=== PATIENT | female | born 1980 | race Caucasian/White ===

== ENCOUNTER → 2017-09-17 13:35 | Observation (INO) ==
[2017-09-17 11:03] LABS: Basophils % 0.3 %; Eosinophils # 0.2 K/mcL (0.0-0.6); Eosinophils % 1.8 %; Hematocrit 32.8 % (35.3-44.9); Hemoglobin 10.5 g/dL (11.5-15.4); Immature Granulocytes % 0.5 % (0-4); Lymphocytes # 2.2 K/mcL (0.6-4.6); Lymphocytes % 20.3 %; Mean Corpuscular Hemoglobin 26.2 pg (28.0-33.3); Mean Corpuscular Volume 81.8 fL (83.0-100.0); Mean Platelet Volume 8.6 fL (9.4-12.4); Monocytes # 0.7 K/mcL (0.0-1.3); Monocytes % 6.1 %; Neutrophils # 7.8 K/mcL (1.6-8.9); Nucleated Red Blood Cells 0.2 /100 WBC (0); Platelet Count 411 K/mcL (140-400); Red Blood Count 4.01 M/mcL (3.82-4.97)
[2017-09-17 11:08] LABS: Amphetamine Screen,Urine Negative ng/mL (Cutoff=1000); Barbiturate Screen,Urine Negative ng/mL (Cutoff=200); Benzodiazepines Screen,Urine Negative ng/mL (Cutoff=200); Cannabinoid Screen,Urine Negative ng/mL (Cutoff = 50); Cocaine Screen,Urine Negative ng/mL (Cutoff= 300); Opiate Screen,Urine Negative ng/mL (Cutoff=300); Phencyclidine Screen,Urine Negative ng/mL (Cutoff=25)
[2017-09-17 11:11] LABS: Creatinine,Urine 90 mg/dL
[2017-09-17 11:30] LABS: Alanine Aminotransferase 27 Units/L (7-52); Aspartate Amino Transferase 38 Units/L (13-39); BUN/Creatinine Ratio 20 (6-26); Blood Urea Nitrogen 8 mg/dL (6-20); Lactate Dehydrogenase 160 Units/L (140-271); Uric Acid 4.1 mg/dL (2.3-7.6); eGFR For African Americans > 60 (> 60); eGFR For Non-African Americans > 60 (> 60)
[2017-09-17 11:47] LABS: Bilirubin,Urine Negative (Negative); Blood,Urine Negative (Negative); Clarity,Urine Cloudy (Clear); Color,Urine Yellow (Yellow); Glucose,Urine (UA) Normal (Normal); Ketones,Urine Trace mg/dL (Negative); Leukocyte Esterase,Urine Moderate (Negative); Nitrite,Urine Negative (Negative); PH,Urine 6.5 pH Units (5.0-8.0); Protein,Urine Negative (Neg-Trace); Specific Gravity,Urine 1.019 (1.010-1.025); Urobilinogen,Urine Normal (Normal)
[2017-09-17 11:49] LABS: Bacteria,Urine Moderate per hpf (None-Few); Hyaline Casts,Urine Few per lpf (None-Few); RBC,Urine 0-3 per hpf (0-3); Squamous Epithelial Cell,Urine Many per lpf (None-Few); WBC,Urine 30-50 per hpf (0-3)
--- NOTE | 2017-09-17 13:13 | OB/GYN Progress Note ---
Date of Encounter: 09/17/17 Time of Encounter: 13:10 - Assessment and Plan (1) and not yet delivered in third trimester Current Visit: Yes Status: Acute (2) 29 weeks gestation of Current Visit: Yes Status: Acute (3) Gestational hypertension Current Visit: Yes Status: Acute We will start patient on labetalol 200 mg twice a day will do 24 hr urine she will follow up in 1 week for blood pressure check following maternal medicine and then the week for her diabetes Qualifiers: Trimester: third trimester Qualified Code(s): O13.3 - Gestational [ -induced] hypertension without significant proteinuria, third trimester (4) Gestational diabetes Current Visit: Yes Status: Acute Qualifiers: Gestational diabetes mellitus control: oral hypoglycemic-controlled Trimester: third trimester Qualified Code(s): O24.415 - Gestational diabetes mellitus in , controlled by oral hypoglycemic drugs Subjective - Subjective Interval history: Patient is a 46-year-old 2 para 1 at 29-3/7 weeks who was sent over from the office due to elevated blood pressures. Patient's had no issues up to this point which is recently diagnosed as a gestational diabetic and recently started on metformin patient had nausea vomiting diarrhea for the past week and feels she is dehydrated her urinalysis did show she had protein she did have ketones and she was dehydrated based on specific gravity we did repeat her blood pressures remained elevated so we sent her to labor and delivery for evaluation on labor and delivery patient did have elevated blood pressures 130s over high 90s to as high as 160/101 PIH labs obtained and the patient they come back normal for protein creatinine ratio was 0.3 we did give the patient one dose labetalol 200 mg by mouth did bring her blood pressure back in the normal range I feel comfortable letting the patient go home at this time on labetalol 200 mg twice a day she is scheduled to see maternal medicine at the end of the week and we will start her on a 24-hour urine to check this since she is a diabetic so have a baseline patient will do blood pressure before taking medication if elevated she will take it of its normal she will hold off taking medication she was brian on admission we did give her an IV bolus was did space out the contractions. Patient was not feeling any of the contractions. Patient will get back on her diet likely just for the nausea and vomiting and she has been recommended to get some Imodium to help with the diarrhea. Antepartum ROS: other (Hypertension) Objective - Vital Signs Vital Signs: Intake and Output 09/16/17 09/17/17 09/17/17 23:59 07:59 15:59 Other: Weight 96.2 kg Patient Weight 09/17/17 23:59 Weight 96.2 kg - Exam FHR: category 1 FHR comments: heart tones 140s reactive occasional contractions seen Abdomen: Present: normal appearance Uterus: Present: normal, firm - Labs Labs: Abnormal lab results Hgb 10.5 g/dL (11.5-15.4) L 09/17/17 10:40 Hct 32.8 % (35.3-44.9) L 09/17/17 10:40 MCV 81.8 fL (83.0-100.0) L 09/17/17 10:40 MCH 26.2 pg (28.0-33.3) L 09/17/17 10:40 Plt Count 411 K/mcL (140-400) H 09/17/17 10:40 MPV 8.6 fL (9.4-12.4) L 09/17/17 10:40 Nucleated RBCs/100 WBC 0.2 /100 WBC (0) H 09/17/17 10:40 Creatinine 0.40 mg/dL (0.60-1.20) L 09/17/17 10:40 Urine Clarity Cloudy (Clear) A 09/17/17 10:40 Urine Ketones Trace mg/dL (Negative) H 09/17/17 10:40 Ur Leukocyte Esterase Moderate (Negative) H 09/17/17 10:40 Urine Microscopic WBC 30-50 per hpf (0-3) H 09/17/17 10:40 Ur Squamous Epith Cells Many per lpf (None-Few) H 09/17/17 10:40 Urine Bacteria Moderate per hpf (None-Few) H 09/17/17 10:40 Protein/Creatinin Ratio 0.30 mg/mg (0.00-0.20) H 09/17/17 10:40 Urine Total Protein 27 mg/dL (1-14) H 09/17/17 10:40
[~2017-09-17 13:35] MED LIST: 0.9 % Sodium Chloride 1,000 ML IVC ONE; 0.9 % Sodium Chloride 1,000 ML ONE
== END | disposition home or self-care (01) ==
LOC: 1NENULAB
PROVIDERS: ADMIT Obstetrics & Gynecology; ATTEND Obstetrics & Gynecology

== ENCOUNTER → 2017-11-01 18:42 | Observation (INO) ==
[2017-11-01 16:57] LABS: Bilirubin,Urine Negative (Negative); Blood,Urine Negative (Negative); Clarity,Urine Cloudy (Clear); Color,Urine Yellow (Yellow); Glucose,Urine (UA) Normal (Normal); Ketones,Urine Negative (Negative); Leukocyte Esterase,Urine Moderate (Negative); Nitrite,Urine Negative (Negative); Protein,Urine 30 mg/dL (Neg-Trace); Specific Gravity,Urine 1.019 (1.010-1.025); Urobilinogen,Urine Normal (Normal)
[2017-11-01 16:59] LABS: Bacteria,Urine Moderate per hpf (None-Few); Hyaline Casts,Urine Few per lpf (None-Few); Squamous Epithelial Cell,Urine Many per lpf (None-Few); WBC,Urine 50-100 per hpf (0-3)
[2017-11-01 17:06] LABS: Amphetamine Screen,Urine Negative ng/mL (Cutoff=1000); Barbiturate Screen,Urine Negative ng/mL (Cutoff=200); Benzodiazepines Screen,Urine Negative ng/mL (Cutoff=200); Cannabinoid Screen,Urine Negative ng/mL (Cutoff = 50); Cocaine Screen,Urine Negative ng/mL (Cutoff= 300); Opiate Screen,Urine Negative ng/mL (Cutoff=300); Phencyclidine Screen,Urine Negative ng/mL (Cutoff=25)
--- NOTE | 2017-11-01 18:28 | OB/GYN Progress Note ---
Date of Encounter: 11/01/17 Time of Encounter: 16:25 - Assessment and Plan (1) 36 weeks gestation of Current Visit: Yes Status: Acute (2) Large for gestational age fetus affecting mother, antepartum, third trimester, single gestation Current Visit: Yes Status: Acute (3) Gestational diabetes Current Visit: No Status: Acute Qualifiers: Gestational diabetes mellitus control: insulin-controlled Trimester: third trimester Qualified Code(s): O24.414 - Gestational diabetes mellitus in , insulin controlled (4) and not yet delivered in third trimester Current Visit: No Status: Acute (5) uterine contractions in third trimester, antepartum Current Visit: Yes Status: Acute Subjective - Subjective Interval history: Patient is a 36-year-old 2 para 1 at 36-6/7 weeks who presents to labor and delivery for evaluation for labor. Patient states been brian all day not that uncomfortable but noticeable. She states she been a lot of vaginal pressure and wanted to be evaluated she states on her NST yesterday she was also having contractions but was not addressed with her and they just discharged to home. Patient was seen earlier in the week and was 2 cm and was 3 cm on admission. She was having irregular contractions but she did not appear to be uncomfortable. We did have the patient ambulate for approximately 1 hour the reassessed and she had made no cervical change. Did addiction counselor her on signs of labor and did advise a right now she is not there. Maternal medicine is following the patient she is a A2 diabetic on insulin with a large for gestational age . They are recommending she delivered in the 38 week range. Patient has been getting twice a week NSTs which have all been reassuring and patient's blood pressures have been stable. Patient will be discharged home with labor precautions if things get more comfortable she is to call or just return. She is not uncomfortable she will keep her appointment on Saturday for her visit with NST Antepartum ROS: contractions Objective - Exam FHR: category 1 FHR comments: heart tones 140s reactive occasional contractions seen Abdomen: Present: gravid Uterus: Present: normal, firm Cervical dilation: 3 Cervix effacement: 70 station: -2 - Labs Labs: Abnormal lab results Urine Clarity Cloudy (Clear) A 11/01/17 16:40 Urine Protein 30 mg/dL (Neg-Trace) H 11/01/17 16:40 Ur Leukocyte Esterase Moderate (Negative) H 11/01/17 16:40 Urine Microscopic RBC 5-15 per hpf (0-3) H 11/01/17 16:40 Urine Microscopic WBC 50-100 per hpf (0-3) H 11/01/17 16:40 Ur Squamous Epith Cells Many per lpf (None-Few) H 11/01/17 16:40 Urine Bacteria Moderate per hpf (None-Few) H 11/01/17 16:40 Ur Culture Indicated? NO. (NO) A 11/01/17 16:40
== END | disposition home or self-care (01) ==
LOC: 1NENULAB
PROVIDERS: ADMIT Obstetrics & Gynecology; ATTEND Obstetrics & Gynecology

== ENCOUNTER 2017-11-04 10:45 | Inpatient (IN) ==
[2017-11-04 11:49] LABS: Basophils % 0.4 %; Eosinophils # 0.1 K/mcL (0.0-0.6); Eosinophils % 1.3 %; Hematocrit 31.4 % (35.3-44.9); Hemoglobin 9.6 g/dL (11.5-15.4); Immature Granulocytes % 0.6 % (0-4); Lymphocytes # 2.6 K/mcL (0.6-4.6); Mean Corpuscular HGB Conc 30.6 g/dL (31.6-35.5); Mean Corpuscular Volume 78.5 fL (83.0-100.0); Mean Platelet Volume 9.6 fL (9.4-12.4); Monocytes # 0.6 K/mcL (0.0-1.3); Neutrophils # 7.7 K/mcL (1.6-8.9); Platelet Count 391 K/mcL (140-400); Red Cell Distribution Width 15.7 % (11.5-14.5); Segmented Neutrophils % 69.7 %
[2017-11-04 11:53] LABS: Alanine Aminotransferase 17 Units/L (7-52); Aspartate Amino Transferase 25 Units/L (13-39); BUN/Creatinine Ratio 13 (6-26); Blood Urea Nitrogen 7 mg/dL (6-20); Lactate Dehydrogenase 156 Units/L (140-271); Uric Acid 6.5 mg/dL (2.3-7.6); eGFR For African Americans > 60 (> 60); eGFR For Non-African Americans > 60 (> 60)
[2017-11-04] MEDS ORDERED: Naloxone 0.4 MG/ML INJ IVP PRN (12:34)
[2017-11-04] MEDS ORDERED: *HR* Nalbuphine 10 MG/ML AMPUL IVP PRN (12:34)
[2017-11-04] MEDS ORDERED: Famotidine 20 MG/2 ML VIAL IVP PRN (12:34)
[2017-11-04] MEDS ORDERED: *HR* Labetalol 20 MG/4 ML SYRINGE IVP ONE (12:36)
[2017-11-04] MEDS ORDERED: Ringers Solution, Lactated 1,000 ML IVC SCH (12:45)
--- NOTE | 2017-11-04 13:06 | OB/GYN History & Physical ---
Date of Encounter: 11/04/17 Time of Encounter: 13:02 Assessment and Plan (1) 37 weeks gestation of Current visit: No Status: Acute Patient with symptomatic hypertension, plan for IOL. (2) Gestational hypertension Current visit: No Status: Acute Multiple elevated BP readings since arrival on the unit. Given labetalol 10mg IVP once. Continue to monitor vitals. Plan for IOL- Pitocin ordered. Qualifiers: Trimester: third trimester Qualified Code(s): O13.3 - Gestational [ -induced] hypertension without significant proteinuria, third trimester (3) Gestational diabetes Current visit: No Status: Acute Home regimen of metformin 1000mg BID with 6 units humulin at bedtime. Currently on NS IVF, if BG <60 will add D5% to IVFs. Monitor BG every 1-2 hours. Qualifiers: Gestational diabetes mellitus control: insulin-controlled Trimester: third trimester Qualified Code(s): O24.414 - Gestational diabetes mellitus in , insulin controlled (4) Group B Streptococcus carrier state affecting Current visit: No Status: Acute Vancomycin per protocol for GBS due to PCN allergy. History of Present Illness Chief complaint: induced hypertension HPI: Ms. Zapata is a 36 year old female at 37 weeks and 2 days that presents to L&D for evaluation. Patient called office this morning with complaints of not feeling well, dizziness, headache, and high blood pressure. Patient with gestational diabetes on Metformin 1000mg twice daily and 6 units of humulin at bedtime; notes good control of BG at home. Mulitple BPs elevated in L&D; Marianna (quirk sander) discussed with Dr. Powell, Dr. Lewis, and Dr. Marrero that agree patient should be induced. Patient notes occasional contractions, two yesterday. No bleeding or loss of fluids, she believes she may have lost her mucus plug on Saturday. Patient notes movement. She admits some lower abdominal pain/cramping, which she relates to the contractions. Labs: Blood type B+ GBS positive-Vancomycin ordered Rubella positive Varicella Positive Hepatitis B nonreactive HIV nonreactive Treponema negative Past Med Surg Social Fam HX - Past Medical History Medical history: asthma Psychiatric history: no psych history - Past Surgical History Surgical History: other - Social History Smoking Status: Never smoker Smokeless Tobacco Status: No Alcohol use: none Drug use: none - Family History Mother Family Member Ethnicity: Non- Living Status: Still Living Hx Family Cardiac Disorders: No Hx Family Respiratory Disorders: No Hx Family Cancer: No Hx Family GI Disorders: No Hx Family Endocrine Disorder: Yes (diabetes) Hx Family Neuromuscular Disorders: No Hx Family Neurologic Disorders: No Hx Family HEENT Disorders: No Hx Family Autoimmune Disorders: No Obstetrical History - Pregnancies : 2 Para: 1 Term: 1 : 0 Ab's: 0 Livin Medications and Allergies Albuterol Sulfate [Albuterol Inhaler] 1 puff IH PRN PRN 08/29/17 [History] Doxylamine/Pyridoxine HCl [Diclegis Dr 10-10 mg Tablet] 2 tab PO DAILY 08/29/17 [History] Omeprazole [PriLOSEC] 20 mg PO DAILY 08/29/17 [History] Vit/Iron Fumarate/FA [ Tablet] 1 tab PO DAILY 08/29/17 [History ] Ranitidine HCl [Zantac] 150 mg PO TID 08/29/17 [History] Humulin N Kwikpen 6 units SQ HS 11/04/17 [History] metFORMIN 1,000 mg PO BID 11/04/17 [History] 3 Allergy/AdvReac Type Severity Reaction Status Date / Time Penicillins AdvReac Vomiting Verified 08/29/17 15:08 Review of System OB All systems PM: reviewed and no additional remarkable complaints except as stated Exam - Constitutional Constitutional: well developed, well nourished, no acute distress - HEENT HEENT: Normocephaly, Mucus Membranes Moist - Neck Neck exam: full ROM, normal inspection - Lungs Respiratory exam: CTAB - Cardiovascular Cardiovascular exam: RRR, +S1, +S2 - Abdomen Abdomen: Present: bowel sounds normal, gravid, non tender - Extremities Extremities exam: normal inspection, warm Results Result Diagrams: 11/04/17 10:52 11/04/17 10:52 Abnormal lab results Hgb 9.6 g/dL (11.5-15.4) L 11/04/17 10:52 Hct 31.4 % (35.3-44.9) L 11/04/17 10:52 MCV 78.5 fL (83.0-100.0) L 11/04/17 10:52 MCH 24.0 pg (28.0-33.3) L 11/04/17 10:52 MCHC 30.6 g/dL (31.6-35.5) L 11/04/17 10:52 RDW 15.7 % (11.5-14.5) H 11/04/17 10:52 Creatinine 0.55 mg/dL (0.60-1.20) L 11/04/17 10:52 All other labs normal. - VTE Reasons for not Prescribing Prophylaxis: Treatment not Indicated - Low risk for VTE
[2017-11-04] MEDS ORDERED: Oxytocin 20 units/ LR 1000 mL 20 UNIT/1,000 ML BAG IVC SCH (13:15)
[2017-11-04 13:32] LABS: Glucose 93 mg/dL (70-105)
--- NOTE | 2017-11-04 14:00 | Anesthesia Evaluation PreOp ---
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 Significant HX Other Medical History: Diabetes Type II (gestational diabetes), GERD Anesthesia History: Past Anesthesia (Sinus surgery, experienced bronchospasms during emergence.) : Yes Alcohol Use: none Drug use: none Medications and Allergies Albuterol Sulfate [Albuterol Inhaler] 1 puff IH PRN PRN 08/29/17 [History] Doxylamine/Pyridoxine HCl [Diclegis Dr 10-10 mg Tablet] 2 tab PO DAILY 08/29/17 [History] Omeprazole [PriLOSEC] 20 mg PO DAILY 08/29/17 [History] Vit/Iron Fumarate/FA [ Tablet] 1 tab PO DAILY 08/29/17 [History ] Ranitidine HCl [Zantac] 150 mg PO TID 08/29/17 [History] Humulin N Kwikpen 6 units SQ HS 11/04/17 [History] metFORMIN 1,000 mg PO BID 11/04/17 [History] 3 Allergy/AdvReac Type Severity Reaction Status Date / Time Penicillins AdvReac Vomiting Verified 08/29/17 15:08 - Meds/Allergy Pre-op Review Medications Reviewed: Yes Allergies Reviewed: Yes Beta Blockers on Current Med List: No Anesthesia Results - Labs 11/04/17 10:52 11/04/17 10:52 Anesthesia Exam BP 142/95 P 93 R 16 T 98.3 Height: 5'5" Weight: 97kg NPO (# of Hours): 6 Pain Scale: 2 Pain Scale Used: Numeric (1 - 10) - HEENT Pupil (Motor): Pupils equal Mallampati: II Teeth: Normal Oral Opening: Greater than 3 - [employer] SUPERVISOR LOC: Oriented [employer] SUPERVISOR Motor: Normal RUE, Normal LUE, Normal RLE, Normal LLE, Normal Face [employer] SUPERVISOR Sensory: Normal: RUE, LUE, RLE, LLE, Face - Cardiac Rhythm: Regular Murmur: None JVD: No Carotid Bruit: No - Pulmonary Breath Sounds: bilateral Clear Respiratory Effort: Symmetrical Anesthesia Assess/Plan ASA Score: 2 Modified [place] Scale for Level of Consciousness: Cooperative, oriented, and tranquil Anesthetic Plan: Regional Autologous Blood: No Monitoring Plan: Standard Monitors Recovery Plan: Other
[2017-11-04] MEDS ORDERED: *HR* FentaNYL (PF) 100 MCG/2 ML VIAL EP ONE (18:16)
[2017-11-04] MEDS ORDERED: EPHEDrine 50 MG/ML VIAL IVP PRN (18:16)
[2017-11-04] MEDS ORDERED: Ondansetron 4 MG/2 ML VIAL IVP PRN (18:16)
[2017-11-04] MEDS ORDERED: Bupivacaine-MPF 0.25% 10 ML VIAL EP ONE (18:16)
[2017-11-04] MEDS ORDERED: Epidural Premix (fent/bupiv) 110 ML EP ONE (18:21)
[2017-11-04] MEDS ORDERED: Epidural Premix (fent/bupiv) 110 ML EP SCH (18:30)
[2017-11-04] MEDS: Ondansetron 4 MG/2 ML VIAL IVP PRN (18:48)
--- NOTE | 2017-11-04 19:02 | Anesthesia Procedures ---
Date of Encounter: 11/04/17 Time of Encounter: 18:22 Procedures: Anesthesia - Epidural/Spinal Patient ID/Chart reviewed: Yes Patient examined: Yes OB Eval: Gestational age: 37.2 OB Eval: : 2 OB Eval: Hx Para: 1 OB Eval: Dilated at (cm): 4 OB Eval: Contractions: Non-stressed pattern Consent Obtained: Yes Supplemental Oxygen: None/Room Air Site Prep: Aseptic Technique, Sterile prep and drape, Povidone-Iodine 1% Patient position: upright Local Anesthetic: Lidocaine 1% Amount of Local Anesthetic used: 3 Touhy Needle Gauge: 18 Touhy Needle Depth (cm): 7 Catheter Depth at Skin (cm): 15 Test Dose (1.5% Lido + Epi): Volume given (mls): 3 Test Dose Result: Negative Loading Dose: 0.25% Marcaine (mls): 10 Loading Dose: Fentanyl (mcg): 100 Loading Dose Administered: Thru Catheter Infusion Med: 0.125% Bupivacaine w/ 2 mcg/ml Fentanyl Infusion Rate (mls/hr): [address]: Tegaderm, Tape Interspace Used: L3-L4 Loss of Resistance (AUDRA): Yes Blood: No CSF: No Paresthesia: No Procedure: MOSHE placed 1st pass in upright position without any immediate noted complications. VSS and FHT stable throughout. Vitals + FHT's: 1822 BP 140/86 P 108 R 18 1856 BP 141/87 P 97 R 16 FHT 130s
--- NOTE | 2017-11-04 19:30 | OB Labor Progress Note ---
Date of Encounter: 11/04/17 Time of Encounter: 19:27 Labor Progress Note - Subjective Subjective: Patient resting comfortable with epidural in place. Patient denies any pain at this time. - Cervix Cervix: 5/80/0 - Heart Tones Heart Tones: 120 bpm moderate amount of variability +15x15 accels no decels noted. Cat. 1 tracing. - [place]: 1.5-5 min apart - Interventions Interventions: SVE. AROM moderate amount of clear fluid. Patient tolerated well. - Plan Plan: Continue labor management. anticipate
[2017-11-04 20:09] LABS: Amphetamine Screen,Urine Negative ng/mL (Cutoff=1000); Barbiturate Screen,Urine Negative ng/mL (Cutoff=200); Benzodiazepines Screen,Urine Negative ng/mL (Cutoff=200); Cannabinoid Screen,Urine Negative ng/mL (Cutoff = 50); Cocaine Screen,Urine Negative ng/mL (Cutoff= 300); Creatinine,Urine 141 mg/dL; Opiate Screen,Urine Negative ng/mL (Cutoff=300); Phencyclidine Screen,Urine Negative ng/mL (Cutoff=25); Protein/Creatinine Ratio,Urine 0.89 mg/mg (0.00-0.20)
[2017-11-04] MEDS ORDERED: *HR* Ropivacaine/PF 0.5% 20 ML VIAL ONE (22:55)
--- NOTE | 2017-11-04 23:07 | Anesthesia Progress Note ---
Date of Encounter: 11/04/17 Time of Encounter: 23:05 Anesthesia Note - Note Note: Called to bedside with complaints of lower abdominal pain with contractions. Bolus Ropivicaine 0.5% 7ml administered via epidural. Pump rate increased to 17ml/hr from 15ml/hr. VSS 11/04/17 23:05
[2017-11-05] MEDS ORDERED: Epidural Premix (fent/bupiv) 110 ML EP ONE (00:31)
--- NOTE | 2017-11-05 02:04 | OB/GYN Procedure Note ---
Delivery - Delivery Date: 11/05/17 Provider: Marianna Desir Intrapartum events: none Delivery induction: AROM, oxytocin Delivery monitor: external FHT, external uterine Anesthesia: epidural Estimated Blood Loss: 400 - (s) A Delivery Date: 11/05/17 Delivery Time: 01:17 Presentation: vertex Position: THAIS Route of delivery: Gender: Male Viability: Viable Pounds: 7 Ounces: 13 at 1 minute: 8 at 5 mins: 9 Shoulder Dystocia: not encountered Specimens collected: cord blood Placenta: spontaneous Cord: 3 umbilical vessels - Repair Episiotomy: none Laceration Description: Perineal - 1st Degree, Labial (bilateral labial repair) - Complications Delivery complications: none - Disposition Mom disposition: stable in LDR [place] disposition: stable in LDR - Comments Comments: Called to LDR patient complete and pushing. Patient placed in stirrups and prepped for vaginal delivery. Under maternal efforts patient spontaneously delivered a viable male over a 1st degree perineal laceration. No nuchal cord, meconium or shoulder dystocia was encountered. was placed on maternal abdomen. 1st degree perineal laceration was repaired with 3-0 vicryl. Bilateral labial lacerations were repaired with 4-0 vicryl. 1% lidocaine was used to anesthetize sites for repair. Patient tolerated well. Cord was clamped and cut after pulsation ceased. Cord blood was collected. Placenta delivered spontaneously and intact. Pericare provided. All counts correct. Both mother and in LDR for 2 hour recovery.
[2017-11-05] MEDS: Ondansetron 4 MG/2 ML VIAL IVP PRN (02:46)
[2017-11-05] MEDS ORDERED: Acetaminophen 325 MG TABLET PO PRN (04:30)
[2017-11-05] MEDS ORDERED: Benzocaine/Menthol 56 GM AEROSOL SPRAY TP PRN (04:30)
[2017-11-05] MEDS ORDERED: Measles/Mumps/Rubella Vacc 0.5 ML VIAL SQ PRN (04:30)
[2017-11-05] MEDS ORDERED: Lanolin 7 G OINT...G. TP PRN (04:30)
[2017-11-05] MEDS ORDERED: Oxytocin 20 units/ LR 1000 mL 20 UNIT/1,000 ML BAG IVC SCH (04:30)
[2017-11-05] MEDS ORDERED: *HR* HYDROcodone/Acet 5/325 mg TABLET PO PRN (04:30)
[2017-11-05] MEDS ORDERED: Ibuprofen 600 MG TABLET PO PRN (04:30)
[2017-11-05] MEDS ORDERED: Scopolamine Patch 1.5 MG PATCH.TD72 TD ONE (06:16)
[2017-11-05] MEDS ORDERED: *HR* Labetalol 20 MG/4 ML SYRINGE IVP ONE (06:28)
[2017-11-05] MEDS ORDERED: *HR* Promethazine 25 MG/ML VIAL IVP PRN (08:53)
[2017-11-05] MEDS ORDERED: Metoclopramide 10 MG/2 ML VIAL IVP PRN (08:53)
[2017-11-05] MEDS ORDERED: *HR* Promethazine 25 MG/ML VIAL ONE (08:54)
[2017-11-05] MEDS ORDERED: Ringers Solution, Lactated 1,000 ML ONE (08:54)
[2017-11-05] MEDS ORDERED: Ringers Solution, Lactated 1,000 ML IVC SCH (09:00)
[2017-11-05] MEDS: Prenatal Vit/FA 1 EACH TABLET PO SCH (09:14)
[2017-11-06 04:11] VITALS: BP 126/75
[2017-11-06 04:44] LABS: Basophils % 0.1 %; Eosinophils % 0.3 %; Hematocrit 24.1 % (35.3-44.9); Immature Granulocytes % 1.4 % (0-4); Lymphocytes # 3.3 K/mcL (0.6-4.6); Lymphocytes % 24.7 %; Mean Corpuscular HGB Conc 31.5 g/dL (31.6-35.5); Mean Corpuscular Hemoglobin 25.3 pg (28.0-33.3); Mean Corpuscular Volume 80.3 fL (83.0-100.0); Mean Platelet Volume 9.4 fL (9.4-12.4); Monocytes % 7.7 %; Neutrophils # 8.9 K/mcL (1.6-8.9); Nucleated Red Blood Cells 0.2 /100 WBC (0); Platelet Count 327 K/mcL (140-400); Red Cell Distribution Width 15.9 % (11.5-14.5); Segmented Neutrophils % 65.8 %
[2017-11-06 04:46] LABS: Hemoglobin 7.6 g/dL (11.5-15.4)
[2017-11-06 05:13] LABS: Alanine Aminotransferase 14 Units/L (7-52); Aspartate Amino Transferase 22 Units/L (13-39); BUN/Creatinine Ratio 15 (6-26); Blood Urea Nitrogen 8 mg/dL (6-20); Lactate Dehydrogenase 202 Units/L (140-271); Uric Acid 7.1 mg/dL (2.3-7.6); eGFR For African Americans > 60 (> 60); eGFR For Non-African Americans > 60 (> 60)
[2017-11-06] MEDS: Prenatal Vit/FA 1 EACH TABLET PO SCH (08:34)
--- NOTE | 2017-11-06 08:41 | Discharge Summary ---
Date of Encounter: 11/06/17 Time of Encounter: 08:38 - Discharge Diagnosis (1) Vaginal delivery Priority: Primary Status: Acute Comments: Stable in PP, pain well managed on po pain medications, tolerates diet, breast and bottle feeding, desires discharge. (2) anemia Priority: Secondary Status: Acute Comments: Asymptomatic, will discharge home on iron BID (3) Gestational diabetes Priority: Secondary Status: Acute Comments: Blood sugars stable on no medication Qualifiers: Gestational diabetes mellitus control: insulin-controlled Trimester: third trimester Qualified Code(s): O24.414 - Gestational diabetes mellitus in , insulin controlled (4) Gestational hypertension Priority: Primary Status: Acute Comments: Denies PIH symptoms BP check in office in 1 week Will discharge home on [place] medications. Qualifiers: Trimester: third trimester Qualified Code(s): O13.3 - Gestational [ -induced] hypertension without significant proteinuria, third trimester - Discharge Medications Prescriptions: Ibuprofen [Motrin] 600 mg PO Q6HR PRN #60 tablet PRN Reason: Cramping Docusate [Colace] 100 mg PO BID #60 capsule Ferrous Sulfate 325 mg PO BIDWM #90 tablet Labetalol [Trandate] 100 mg PO BID #60 tablet Home Medications: Albuterol Sulfate [Albuterol Inhaler] 1 puff IH PRN PRN 08/29/17 [History] Vit/Iron Fumarate/FA [ Tablet] 1 tab PO DAILY 08/29/17 [History ] Acetaminophen [Tylenol] 650 mg PO Q6HR PRN tablet 11/06/17 [Rx] Benzocaine/Menthol [place] [Dermoplast [place]] 1 appl TP QID PRN aerosol 11/06/17 [Rx] Docusate [Colace] 100 mg PO BID #60 capsule 11/06/17 [Rx] Ferrous Sulfate 325 mg PO BIDWM #90 tablet 11/06/17 [Rx] Ibuprofen [Motrin] 600 mg PO Q6HR PRN #60 tablet 11/06/17 [Rx] Labetalol [Trandate] 100 mg PO BID #60 tablet 11/06/17 [Rx] Lanolin [Lansinoh] 1 appl TP TID PRN oint...g. 11/06/17 [Rx] Vit/FA 1 each PO DAILY tablet 11/06/17 [Rx] Allergies/Adverse Reactions: 3 Allergy/AdvReac Type Severity Reaction Status Date / Time Penicillins AdvReac Vomiting Verified 08/29/17 15:08 Data Procedures and tests throughout hospitalization: Laboratory Tests 11/04/17 11/04/17 11/04/17 10:52 10:52 14:46 WBC 11.1 RBC 4.00 Hgb 9.6 L Hct 31.4 L MCV 78.5 L MCH 24.0 L MCHC 30.6 L RDW 15.7 H Plt Count 391 MPV 9.6 Immature Gran % 0.6 Seg Neutrophils % 69.7 Lymphocytes % 23.0 Monocytes % 5.0 Eosinophils % 1.3 Basophils % 0.4 Neutrophils # 7.7 Lymphocytes # 2.6 Monocytes # 0.6 Eosinophils # 0.1 Basophils # 0.0 Nucleated RBCs/100 WBC BUN 7 Creatinine 0.55 L Est GFR ( Amer) > 60 Est GFR (Non-Af Amer) > 60 BUN/Creatinine Ratio 13 Glucose 93 POC Glucose 91 Uric Acid 6.5 AST 25 ALT 17 Lactate Dehydrogenase 156 Urine Creatinine Protein/Creatinin Ratio Urine Total Protein Urine Opiates Screen Ur Barbiturates Screen Ur Phencyclidine Scrn Ur Amphetamines Screen U Benzodiazepines Scrn Urine Cocaine Screen U Marijuana (THC) Screen 11/04/17 11/04/17 11/04/17 16:09 16:58 18:06 WBC RBC Hgb Hct MCV MCH MCHC RDW Plt Count MPV Immature Gran % Seg Neutrophils % Lymphocytes % Monocytes % Eosinophils % Basophils % Neutrophils # Lymphocytes # Monocytes # Eosinophils # Basophils # Nucleated RBCs/100 WBC BUN Creatinine Est GFR ( Amer) Est GFR (Non-Af Amer) BUN/Creatinine Ratio Glucose POC Glucose 88 97 91 Uric Acid AST ALT Lactate Dehydrogenase Urine Creatinine Protein/Creatinin Ratio Urine Total Protein Urine Opiates Screen Ur Barbiturates Screen Ur Phencyclidine Scrn Ur Amphetamines Screen U Benzodiazepines Scrn Urine Cocaine Screen U Marijuana (THC) Screen 11/04/17 11/04/17 11/04/17 19:29 19:30 20:33 WBC RBC Hgb Hct MCV MCH MCHC RDW Plt Count MPV Immature Gran % Seg Neutrophils % Lymphocytes % Monocytes % Eosinophils % Basophils % Neutrophils # Lymphocytes # Monocytes # Eosinophils # Basophils # Nucleated RBCs/100 WBC BUN Creatinine Est GFR ( Amer) Est GFR (Non-Af Amer) BUN/Creatinine Ratio Glucose POC Glucose 101 H 94 Uric Acid AST ALT Lactate Dehydrogenase Urine Creatinine 141 Protein/Creatinin Ratio 0.89 H Urine Total Protein 125 H Urine Opiates Screen Negative Ur Barbiturates Screen Negative Ur Phencyclidine Scrn Negative Ur Amphetamines Screen Negative U Benzodiazepines Scrn Negative Urine Cocaine Screen Negative U Marijuana (THC) Screen Negative 11/04/17 11/04/17 11/04/17 21:39 22:33 23:33 WBC RBC Hgb Hct MCV MCH MCHC RDW Plt Count MPV Immature Gran % Seg Neutrophils % Lymphocytes % Monocytes % Eosinophils % Basophils % Neutrophils # Lymphocytes # Monocytes # Eosinophils # Basophils # Nucleated RBCs/100 WBC BUN Creatinine Est GFR ( Amer) Est GFR (Non-Af Amer) BUN/Creatinine Ratio Glucose POC Glucose 98 89 108 H Uric Acid AST ALT Lactate Dehydrogenase Urine Creatinine Protein/Creatinin Ratio Urine Total Protein Urine Opiates Screen Ur Barbiturates Screen Ur Phencyclidine Scrn Ur Amphetamines Screen U Benzodiazepines Scrn Urine Cocaine Screen U Marijuana (THC) Screen 11/05/17 11/05/17 11/05/17 00:52 03:48 06:09 WBC RBC Hgb Hct MCV MCH MCHC RDW Plt Count MPV Immature Gran % Seg Neutrophils % Lymphocytes % Monocytes % Eosinophils % Basophils % Neutrophils # Lymphocytes # Monocytes # Eosinophils # Basophils # Nucleated RBCs/100 WBC BUN Creatinine Est GFR ( Amer) Est GFR (Non-Af Amer) BUN/Creatinine Ratio Glucose POC Glucose 99 113 H 120 H Uric Acid AST ALT Lactate Dehydrogenase Urine Creatinine Protein/Creatinin Ratio Urine Total Protein Urine Opiates Screen Ur Barbiturates Screen Ur Phencyclidine Scrn Ur Amphetamines Screen U Benzodiazepines Scrn Urine Cocaine Screen U Marijuana (THC) Screen 11/05/17 11/05/17 11/06/17 13:22 20:03 04:03 WBC 13.5 H RBC 3.00 L Hgb 7.6 L D Hct 24.1 L MCV 80.3 L MCH 25.3 L MCHC 31.5 L RDW 15.9 H Plt Count 327 MPV 9.4 Immature Gran % 1.4 Seg Neutrophils % 65.8 Lymphocytes % 24.7 Monocytes % 7.7 Eosinophils % 0.3 Basophils % 0.1 Neutrophils # 8.9 Lymphocytes # 3.3 Monocytes # 1.0 Eosinophils # 0.0 Basophils # 0.0 Nucleated RBCs/100 WBC 0.2 H BUN Creatinine Est GFR ( Amer) Est GFR (Non-Af Amer) BUN/Creatinine Ratio Glucose POC Glucose 132 H 136 H Uric Acid AST ALT Lactate Dehydrogenase Urine Creatinine Protein/Creatinin Ratio Urine Total Protein Urine Opiates Screen Ur Barbiturates Screen Ur Phencyclidine Scrn Ur Amphetamines Screen U Benzodiazepines Scrn Urine Cocaine Screen U Marijuana (THC) Screen 11/06/17 04:03 WBC RBC Hgb Hct MCV MCH MCHC RDW Plt Count MPV Immature Gran % Seg Neutrophils % Lymphocytes % Monocytes % Eosinophils % Basophils % Neutrophils # Lymphocytes # Monocytes # Eosinophils # Basophils # Nucleated RBCs/100 WBC BUN 8 Creatinine 0.55 L Est GFR ( Amer) > 60 Est GFR (Non-Af Amer) > 60 BUN/Creatinine Ratio 15 Glucose POC Glucose Uric Acid 7.1 AST 22 ALT 14 Lactate Dehydrogenase 202 Urine Creatinine Protein/Creatinin Ratio Urine Total Protein Urine Opiates Screen Ur Barbiturates Screen Ur Phencyclidine Scrn Ur Amphetamines Screen U Benzodiazepines Scrn Urine Cocaine Screen U Marijuana (THC) Screen Labs on day of discharge: Labs from last 24 hours 11/06/17 11/06/17 11/05/17 04:03 04:03 20:03 WBC 13.5 H RBC 3.00 L Hgb 7.6 L D Hct 24.1 L MCV 80.3 L MCH 25.3 L MCHC 31.5 L RDW 15.9 H Plt Count 327 MPV 9.4 Immature Gran % 1.4 Seg Neutrophils % 65.8 Lymphocytes % 24.7 Monocytes % 7.7 Eosinophils % 0.3 Basophils % 0.1 Neutrophils # 8.9 Lymphocytes # 3.3 Monocytes # 1.0 Eosinophils # 0.0 Basophils # 0.0 Nucleated RBCs/100 WBC 0.2 H BUN 8 Creatinine 0.55 L Est GFR ( Amer) > 60 Est GFR (Non-Af Amer) > 60 BUN/Creatinine Ratio 15 POC Glucose 136 H Uric Acid 7.1 AST 22 ALT 14 Lactate Dehydrogenase 202 11/05/17 11/05/17 11/05/17 13:22 03:48 00:52 WBC RBC Hgb Hct MCV MCH MCHC RDW Plt Count MPV Immature Gran % Seg Neutrophils % Lymphocytes % Monocytes % Eosinophils % Basophils % Neutrophils # Lymphocytes # Monocytes # Eosinophils # Basophils # Nucleated RBCs/100 WBC BUN Creatinine Est GFR ( Amer) Est GFR (Non-Af Amer) BUN/Creatinine Ratio POC Glucose 132 H 113 H 99 Uric Acid AST ALT Lactate Dehydrogenase 11/04/17 11/04/17 11/04/17 23:33 22:33 21:39 WBC RBC Hgb Hct MCV MCH MCHC RDW Plt Count MPV Immature Gran % Seg Neutrophils % Lymphocytes % Monocytes % Eosinophils % Basophils % Neutrophils # Lymphocytes # Monocytes # Eosinophils # Basophils # Nucleated RBCs/100 WBC BUN Creatinine Est GFR ( Amer) Est GFR (Non-Af Amer) BUN/Creatinine Ratio POC Glucose 108 H 89 98 Uric Acid AST ALT Lactate Dehydrogenase 11/04/17 11/04/17 11/04/17 20:33 19:29 18:06 WBC RBC Hgb Hct MCV MCH MCHC RDW Plt Count MPV Immature Gran % Seg Neutrophils % Lymphocytes % Monocytes % Eosinophils % Basophils % Neutrophils # Lymphocytes # Monocytes # Eosinophils # Basophils # Nucleated RBCs/100 WBC BUN Creatinine Est GFR ( Amer) Est GFR (Non-Af Amer) BUN/Creatinine Ratio POC Glucose 94 101 H 91 Uric Acid AST ALT Lactate Dehydrogenase 11/04/17 11/04/17 11/04/17 16:58 16:09 14:46 WBC RBC Hgb Hct MCV MCH MCHC RDW Plt Count MPV Immature Gran % Seg Neutrophils % Lymphocytes % Monocytes % Eosinophils % Basophils % Neutrophils # Lymphocytes # Monocytes # Eosinophils # Basophils # Nucleated RBCs/100 WBC BUN Creatinine Est GFR ( Amer) Est GFR (Non-Af Amer) BUN/Creatinine Ratio POC Glucose 97 88 91 Uric Acid AST ALT Lactate Dehydrogenase Date of admission: 11/04/17 10:45 Primary care physician: Kathryn Farnsworth Consults: 11/05/17 04:30 Consult to Documentation Clerk [CONS] Routine Comment: Vaginal delivery, consult needed Discharging clinician: Anita Valdivia Anticipated date of discharge: 11/06/17 - Patient Status Disposition: Home, Self-Care Condition: Good Functional capacity at discharge: independent ambulation Overall status at discharge: patient is back to baseline - Discharge Instructions Instructions: Anemia (GEN) Follow Up With: Kathryn Delatorre MD [Primary Care Provider] - Singh Powell DO [Partnered Physician] - - Diet and Activity Activity: resume usual activities as tolerated Diet: regular diet Hospital Course Reason for admission: induction of labor, IUP at term Delivery: Episiotomy: none Laceration: 1st degree Other procedures: none complications: none Discharge diagnosis: IUP at term delivered baby: male Hospital course: Delivery - Delivery Date: 11/05/17 Provider: Marianna Desir Intrapartum events: none Delivery induction: AROM, oxytocin Delivery monitor: external FHT, external uterine Anesthesia: epidural Estimated Blood Loss: 400 - (s) A Delivery Date: 11/05/17 Delivery Time: 01:17 Presentation: vertex Position: THAIS Route of delivery: Gender: Male Viability: Viable Pounds: 7 Ounces: 13 at 1 minute: 8 at 5 mins: 9 Shoulder Dystocia: not encountered Specimens collected: cord blood Placenta: spontaneous Cord: 3 umbilical vessels - Repair Episiotomy: none Laceration Description: Perineal - 1st Degree, Labial (bilateral labial repair) - Complications Delivery complications: none - Disposition Mom disposition: stable in PP and appropriate for discharge. Time Attestation: Total time spent providing and/or coordinating discharge services: Time Spent: Less than 30 minutes Exam - Constitutional Vitals: Temp Pulse Resp BP Pulse Ox 98.1 F 96 12 126/75 95 11/06/17 04:08 11/06/17 04:08 11/06/17 04:08 11/06/17 04:08 11/06/17 04:08 General appearance IM: A&O X 3 - Respiratory Respiratory exam: Present: CTAB - Cardiovascular Cardiovascular exam IM: Present: RRR - GI/Abdominal GI/Abdominal exam IM: soft - Uterine Tone: Firm Uterus Position: At Umbilicus - Extremities Exam Extremities exam IM: Present: full ROM, normal capillary refill - Neurological Exam Neurological exam: normal gait, oriented X3 - Psychiatric Additional comments: Reports good mood.
== END 2017-11-06 15:55 | disposition home or self-care (01) | DRG 775 ==
LOC: 1NENULAB → OBSVTOIN 10:45 → 1NENUOBS 11-05 04:26
PROVIDERS: ADMIT Student in an Organized Health Care Education/Training Program; ATTEND Student in an Organized Health Care Education/Training Program